=== PATIENT | male | born 1995 | race Caucasian/White ===

== ENCOUNTER 2018-05-30 00:29 | Emergency (ER) | payer MEDICAID ==
[~2018-05-30] VITALS: Ht 180.3 cm; Wt 95.7 kg
[~2018-05-30 00:29] MED LIST: LORA10TA7 PO; PROM6.25 PO
[2018-05-30 00:35] VITALS: BP_SYST 136
[2018-05-30] MEDS ORDERED: IBUPROFEN 800 MG TABLET PO ONE (01:15)
[2018-05-30 02:05] VITALS: BP_SYST 127
== END 2018-05-30 02:25 | disposition home or self-care (01) ==
LOC: SED 00:29
DX: J06.9 Acute upper respiratory infection, unspecified (principal); J45.909 Unspecified asthma, uncomplicated
CPT/HCPCS: 36415; 86710; 99284